=== PATIENT | female | born 1995 | race Caucasian/White ===

== ENCOUNTER 2024-02-23 10:33 | Outpatient (AMB) | payer OTHER, SELFPAY ==
--- NOTE | 2024-02-23 10:41 | AM.OFFWIN_ITS ---
Intake Vital Signs 02/23/24 10:44 Height 5 ft 4 in Weight 239 lb BMI 41.0 BP 114/80 Blood Pressure Location Rt brachial Position Sitting Pulse 75 Pulse Source Pulse Oximeter Temp 98.2 F Temp Source Oral Pulse Oximetry (%) 99 Oxygen Delivery Method Room Air Intake Visit Reasons: EP Bronchitis? ([place]) Intake Note: Patient here for tightness in chest, SOB, dry cough, too much sleeping or trouble sleeping that has been going on for about 2 weeks. Patient Tobacco Use Status: Former Tobacco user Allergies Penicillins Adverse Reaction (Severe, Verified 02/23/24 10:46) Anaphylaxis Do you need a note to return to daycare/school/sports/work: No HPI HPI Comments History of Present Illness Details Patient is a 29-year-old female complaining of 2 weeks of feeling short of breath, chest tightness, cough and wheezing. She states she was at a bachelor [employer] party 2 weeks ago when her symptoms started. She is also feeling more fatigued. She denies any sinus pain, ear pain or fevers. She denies any sick contacts. Patient does admit to vaping nicotine. She states she has been using her rescue inhaler lot more often than typical as her some temporary symptomatic relief. [facility] Social History Patient Tobacco Use Status: Former Tobacco user Review of Systems Const All systems reviewed & are unremarkable except as noted in HPI and below Physical Exam Vital Signs: Last Vital Signs Temp 98.2 F 02/23/24 10:44 Pulse 75 02/23/24 10:44 BP 114/80 02/23/24 10:44 Pulse Ox 99 02/23/24 10:44 Oxygen Delivery Method Room Air 02/23/24 10:44 BMI result Body Mass Index 41.0 Const General: cooperative, healthy appearing, comfortable and no acute distress Orientation/consciousness: patient oriented x3 Limitations: no limitations HEENT Head: Yes normal to inspection Ears: hearing grossly normal bilaterally, external ears normal and TM's normal bilaterally General nose exam: Normal external nose present, Normal nares present and No nasal discharge present Face and sinus: Yes normal facial exam and Yes sinuses nontender Mouth: Normal oral and palatal mucosa present and moist mucous membranes Throat: Yes tonsils normal, Yes uvula midline and Yes posterior oropharynx abnormal (Erythema) Eyes General: appearance normal, both eyes and all related structures Neck Neck: Yes normal visual inspection Resp Effort & Inspection: normal respiratory effort, able to speak in complete sentences, Actively coughing, no respiratory distress, not tachypneic, no tripod positioning and no use of accessory muscles Auscultation: wheezes expiratory wheezes, inspiratory wheezes and right lower Cardio Rate: regular rate Rhythm: regular rhythm Heart sounds: normal S1 and S2 Skin General skin exam: no rashes or lesions noted Neuro General: patient oriented x3 Extrem General: Yes normal to inspection and Yes no clubbing, cyanosis or edema Assessment & Plan Assessment & Plan (1) Shortness of breath: Code(s): R06.02 - Shortness of breath Plan: We will get chest x-ray for confirmation of no pneumonia. (2) URI (upper respiratory infection): Code(s): J06.9 - Acute upper respiratory infection, unspecified Qualifiers: URI type: unspecified URI Qualified Code(s): J06.9 - Acute upper respiratory infection, unspecified Plan: Gave patient in office nebulizer treatment with immediate relief of shortness of breath; also we will get chest x-ray, sent flu COVID and RSV testing. (3) Atypical pneumonia: Code(s): J18.9 - Pneumonia, unspecified organism Plan: As patient has had a cough for 2 weeks, sent Z-Felix, also send prednisone for wheezing. Plan See above Orders: Orders SARS-CoV2/FLU/RSV Today J06.9 - Acute upper respiratory infection, unspecified AMB Nebulizer Treatment Today R06.02 - Shortness of breath XR chest 2V Today R05.9 - Cough, unspecified Medications: New prednisone 20 mg PO DAILY 5 tabs 0RF azithromycin For 250 mg dose pack: take 500 mg today (day 1), then 250 mg for 4 days (days 2-5) PO 6 tabs 0RF albuterol sulfate 2.5 mg (3 mL) inhalation ONCE 3 mL 0RF short of breath R06.02 - Shortness of breath Coding Level of Care Code New Pt Level 4 (66116) Diagnoses Shortness of breath R06.02 Upper respiratory tract infection, unspecified type J06.9 URI type: unspecified URI Atypical pneumonia J18.9
[2024-02-23 10:44] VITALS: BP 114/80; PULSE 75; TEMP 36.8; O2SAT 99; BMI 41.0
== END 2024-02-23 11:40 | disposition home or self-care (01) ==
PROVIDERS: Visit Provider Physician Assistant
DX: R06.02 Shortness of breath (principal); J06.9 Acute upper respiratory infection, unspecified; J18.9 Pneumonia, unspecified organism
CPT/HCPCS: 99204

== ENCOUNTER 2024-02-23 11:13 | Outpatient (REF) | payer OTHER, SELFPAY | END 2024-02-23 11:14 | disposition home or self-care (01) | LOC: HO.LAB 11:13 | PROVIDERS: Visit Provider Physician Assistant | DX: Z13.89 Encounter for screening for other disorder (principal) ==

== ENCOUNTER 2024-02-23 11:29 | Outpatient (REF) | payer OTHER, SELFPAY ==
--- NOTE | ~2024-02-23 | XR_ITS ---
EXAMINATION: XR CHEST CLINICAL INFORMATION: Cough COMPARISON: None available. TECHNIQUE: 2 views of the chest were obtained. FINDINGS: HEART & VASCULARITY: There are normal cardiac size and pulmonary vascularity. LUNGS: Lungs are clear. No pneumothorax is seen. BONES: Bony skeleton is intact. XR/XR chest 2V IMPRESSION: Normal chest x-ray. Electronically signed by: Rosie Lopez MD 02/23/2024 11:59 AM EDT
[2024-02-23 14:03] LABS: Influenza A PCR NEGATIVE (Negative); Influenza B PCR NEGATIVE (Negative); Resp Syncy Virus RNA Qual PCR NEGATIVE (Negative); SARS COV2 PCR INHOUSE NEGATIVE (Negative)
== END 2024-02-23 11:30 | disposition home or self-care (01) ==
LOC: HO.HMGCX 11:29
PROVIDERS: PCP Internal Medicine; Visit Provider Physician Assistant
DX: R05.9 Cough, unspecified (principal); J06.9 Acute upper respiratory infection, unspecified
CPT/HCPCS: 0241U; 71046

== ENCOUNTER 2025-03-29 08:06 | Outpatient (AMB) | payer OTHER, SELFPAY ==
--- NOTE | 2025-03-29 10:07 | A.OFFVIS_ITS ---
VS Expanded 03/29/25 10:14 Height 5 ft 4 in Weight 244 lb 8 oz BMI 42.0 Body Fat % 44.2 Body Fat Mass 108.2 Fat Free Mass 136.4 Visceral Fat Rating 11 Body Water % 40 Body Water Mass 97.8 Basal Metabolic Rate/Score 1,940 Intake Visit Reasons: [employer] BMI 42.0 Allergies Penicillins Adverse Reaction (Severe, Verified 03/29/25 10:08) Anaphylaxis Medication List - Last Reconciled 03/29/25 by Gerson Doran MD albuterol sulfate 90 mcg/actuation (Ventolin HFA) 2 puffs inhalation Q6H PRN bupropion HCl XL 300 mg PO DAILY fluoxetine 40 mg PO DAILY HPI HPI [employer] M[employer] BMI 42.0: Details: Start time: 9.53am, End time: 10.53am ?I spent 55 minutes speaking with the patient on the phone plus an additional 5 minutes reviewing and updating records for a total of 60 minutes HPI Comments Details: Previous weight loss efforts: WW, exercise, self diets Wakes up: 8.30am, Sleeps: 10.30pm Breakfast: skips Lunch: 12-2pm (protein, vegetables, starch) Dinner: 5-8pm (salmon, rice, vegetables) Snacks: 9pm several of them (chocolate, cookies, hummus, crackers/cheese Exercise: walking pad Beverages: Coffee (8oz with sugar), Tea: rarely, Soda: Diet coke (once a week), Juice: none, ETOH: 1-2/wk (up to one bottle white wine and beers) PFSH Medical History (Updated 03/29/25 @ 10:10 by Gerson Doran MD) Anxiety Depression Asthma Morbid obesity Surgical History (Updated 02/22/25 @ 13:32 by Laura Saucedo CMA) Hx of tonsillectomy Family History (Updated 02/22/25 @ 13:33 by Laura Saucedo CMA) Mother No problems noted. Father Diabetes Social History (Updated 02/22/25 @ 13:33 by Laura Saucedo CMA) Alcohol intake: current Alcohol intake frequency: a few times a month Patient Tobacco Use Status: Former Tobacco user Telehealth Telehealth Telehealth Platform: Telephone Location of provider rendering services: practice address Location of patient: address on file Patient Identification confirmed using: Name, : Yes Telehealth method: voice only Patient verbally consented to treatment: Yes Patient verbally consented to billing insurance company: Yes Patient informed of any privacy concerns related to visit: Yes Minutes spent on Phone/Video with Pt.: 60 Assessment & Plan Assessment & Plan (1) Morbid obesity: Code(s): E66.01 - Morbid (severe) obesity due to excess calories Category: Medical Plan: 1. As we discussed, based on your present BMI you are approximately 110lbs overweight. In my opinion, for any weight loss strategy to be successful should have a high probability to help you lose at least 90lbs out of 110lbs of the extra weight you carry. We discussed in detail the available therapeutic options: 1) our lifestyle intervention program that has an average weight loss of 10% in 3 months.?Some patients continue it for longer and have lost over 50lbs but this is not common. Our lifestyle program can be provided by me or by using our software chavo, the [employer] chavo. I will provide you with a link to use the chavo if you choose to do so. We use protein shakes and protein bars to replace some of the meals of the day and cover your appetite better. We will decide together the exact combination. 2) Weight loss medications: these can be used in conjunction with our lifestyle program or you may choose to use them without following a lifestyle program from my program but your own. As we discussed, your insurance requires you to do the lifestyle program for 3 months before they approve the medications. 3) We also discussed about the lap sleeve gastrectomy. In my opinion this is the best option to solve your problem based on your situation and should be used in conjunction with the two previous options. A good strategy to make this decision to proceed with surgery, is to set some goals with the lifestyle intervention and medication options: If you don't lose at least 10lbs the first 6 weeks after starting the program or at least 10% in 3 months. ?I emphasized the importance of close follow-up, adherence to instructions and good communication. The surgery does not replace the need to change your lifestlyle which is the cause of the obesity problem. The surgery provides the motivation to try again to change your lifestyle, it reduces the appetite and make the transition to a better lifestyle easier and doubles the amount of weight you would lose compared to doing the lifestyle change without the surgery. You will need to be on a liquid diet with protein shakes for 2 weeks before surgery to maximize weight loss and boost your nutritional status to recover better from surgery and also for the first two weeks after surgery to let the stomach heal before we introduce other foods. After the first 2 weeks we will introduce protein bars and soft foods like scrambled eggs, cottage cheese and yogurt and after the 6th week will introduce meat, fish and cooked vegetables in small amounts. Over time you should be able to eat everything in small amounts. Side effects like nausea, vomiting, heartburn or abdominal pain are not common in the practice unless you are not following in the practice. This operation requires lifetime commitment to following in our practice and communication with me. You will much less weight and experience side effects if you don?t communicate or not following in the practice. Complications are rare and in our practice is about 1/10 of the national average. 2. The patient selected to proceed with GLP-1 agonist and our lifestyle program. Start the Wegovy when you get your body composition scale once a week. We discussed the potential side effects of Wegovy such as nausea, vomiting, abdominal pain, diarrhea and constipation and you will need to contact me if any of these symptoms occur or for any other new symptom you may experience 3. Nutritional counseling. Start with one premade PREMIER protein (buy at [employer] or [employer]) shake (mix 4oz of Premier mixed with 4oz low fat unsweetened almond milk each) at 9am-11am, one protein bar (Fit Crunch protein bar, buy at [employer], or [employer]) at 12pm-2pm, another premade PREMIER protein shake (mix 4oz of Premier mixed with 4oz low fat unsweetened almond milk each) at 3pm-5pm, dinner at 6pm (8 forks of protein and 8 forks of salad/vegetables) and another [employer]unch protein bar at 8pm-10pm. So you do 2 protein shakes, 2 protein bars and one meal per day. Meal to include lean meat (beef, fish, pork, turkey, chicken), or syrian yogurt, or egg whites, or beans with a salad with olive oil and fruits (berries, pears, apples, kiwi). Avoid salt, breads, potatoes, rice, pasta, desserts. 4. Each shake would be drunk slowly, like coffee in a period of 2 hours. 5. Cut each bar in 4 pieces and eat each piece in 30min ?to make each bar last 2 hours. 6. I emphasized the importance of measuring accurately the food portion and measure it when serving the food in plate 7. The meal portions include 8 full-size forks of meat and 8 full-size forks of salad. You always eat the meat portion but you can replace up to 4 forks for salad/vegetables with rice, potatoes or pasta, or a fruit ?if you like. The less you do it the better weight loss will be. 8. One full-size fork is what it can be scooped on the fork without falling aside and not what can be bit with the fork. Use regular forks like those you find in a typical restaurant. 9.? Please buy the body composition scale we discussed and send me weight measurements as soon as possible and then once a week. Always include your diet and exercise plan. 10. Start treadmill with an incline of 2.0 and speed of 3.0. Increase incline by 1 every 3 min to a max incline of 8.0, stay 3min at 8.0 and then return to 2.0 and repeat same steps until calorie goal is met. Goal is to burn 2000 calories per week on exercise, which means either 300 calories daily, or 400 calories 5 days per week, or 500 calories 4 days per week, or 650 calories 3 days per week. Start also weight exercises with 20-30lbs for chest/shoulders/abdomen and 40- 50lbs for thighs doing 2 sets of 15 repetitions each. 11. The best choice would be to purchase a stationary bike, elliptical or treadmill at home that can track calories. Let me know if you do so I can give you an exercise plan. 12.?It is important of avoiding and for at least 18 months postoperatively and has been discussed at the infosession. 13. Goal is to lose at least 1.5-2lbs per week 14. Goal to lose at least 10% of your weight, which is about 24lbs. Minimum weight goal: 220lbs 15. Please follow the diet plan exactly without any change. If you don't like something about the plan or you feel hungry you need to communicate with me so I can help you revise the plan. You should not change the plan yourself
[2025-03-29 10:14] VITALS: BMI 42.0
== END 2025-03-29 10:54 | disposition home or self-care (01) ==
LOC: HO.HBS 08:06
PROVIDERS: PCP Internal Medicine; Visit Provider Surgery
DX: E66.01 Morbid (severe) obesity due to excess calories (principal); Z68.41 Body mass index [BMI] 40.0-44.9, adult
CPT/HCPCS: 99205